=== PATIENT | male | born 1970 | race Caucasian/White ===

== ENCOUNTER 2021-07-18 00:20 | Day surgery (SDC) | payer OTHER, SELFPAY ==
[2021-06-29 11:18] VITALS: BMI 35.9
[2021-07-18 06:05] VITALS: BP 141/88; PULSE 59; RESP 18; TEMP 36.4; O2SAT 97
[2021-07-18] MEDS: LACTATED RINGERS 1,000 ML 150 ML IV CONT (06:27)
--- NOTE | 2021-07-18 07:25 | PM.HPGS ---
History of Present Illness History of Present Illness Consent: Risks, benefits, and alternatives have been discussed and questions answered. Patient agrees to proceed with procedure. Chief complaint: neoplasm screening Narrative: Corky Weston is a 50 year old male here for first screening colonoscopy Review of Systems Constitutional: Constitutional: Denies headache(s) and Denies weakness Eyes: Eyes: Denies blurry vision ENT: Reports Normal hearing present, Denies headache(s) and Denies neck pain Cardiovascular: Cardiovascular: Denies chest pain and Denies dyspnea Respiratory: Respiratory: Denies dyspnea Gastrointestinal: Gastrointestinal: Reports no additional gastrointestinal complaints Genitourinary: Genitourinary: Denies dysuria Musculoskeletal: Musculoskeletal: Denies neck pain Integumentary/Breasts: Skin/Breast: Denies dry skin Neurologic: Reports Normal hearing present, Denies headache(s) and Denies weakness Psychiatric: Psychiatric: Denies anxiety Endocrine: Endocrine: Denies change in body appearance Hematologic/Lymphatic: Hematologic/Lymphatic: Denies easy bleeding Allergic/Immunologic: Allergic/Immunologic: Denies urticaria PMF Past Medical History Medical History (Updated 07/18/21 @ 07:25 by Jimmy Anderson MD) Colon cancer screening Dyslipidemia Essential (primary) hypertension Pure hyperglyceridemia Family History Family History Father Family history of elevated blood lipids Social History Social History Smoking status: Never smoker Second hand tobacco smoke exposure: No Alcohol intake: current Drinks per week: 2 Substance use: never Substance use type: does not use Living arrangements: with family Gender identity (if verbalized by the patient): Male Spiritual care concerns: No Meds Home Medications and Allergies Home Medications Medication Instructions Recorded Confirmed Type multivitamin 1 tablet PO DAILY 06/06/20 07/18/21 History amlodipine 10 mg PO DAILY 06/29/21 07/18/21 History lisinopril 40 mg PO DAILY 06/29/21 07/18/21 History Allergies Allergy/AdvReac Type Severity Reaction Status Date / Time No Known Allergies Allergy Verified 06/29/21 11:17 Vital Signs Vital Signs - 24 hr 07/18/21 06:05 Temperature 97.6 F Pulse Rate 59 L Respiratory Rate 18 Blood Pressure 141/88 H Pulse Oximetry 97 Exam Const: General: comfortable and no acute distress HENMT: General nose exam: Normal nares present Eyes: General: appearance normal, both eyes and all related structures Neck: Neck: no JVD Resp: Auscultation: clear to auscultation bilaterally Cardio: Rate: regular rate Rhythm: regular rhythm GI: Inspection: non-distended GI Palp: Yes Soft to palpation Skin: General skin exam: normal color Neuro: General: gait normal Speech: normal speech Extrem: General: normal to inspection Psych: Mental Status: mental status grossly normal Assessment and Plan Assessment and plan (1) Colon cancer screening: Code(s): Z12.11 - Encounter for screening for malignant neoplasm of colon Status: Acute Assessment and Plan: colonoscopy
--- NOTE | 2021-07-18 07:44 | WPDANESEPPF ---
Anes - Initial Pre Proc Eval Procedure: Operation Date: 07/18/21 07:30 Proposed Procedures p Screening Colonoscopy - Jimmy Anderson MD Date/Time: 07/18/21 07:44 Surgeon: Jimmy Anderson MD Pre Op Diagnosis: neoplasm screening Patient Data Age: 50 Gender: M Height: 1.88 m Weight: 132.8 kg Last Vital Signs Temp 97.6 F 07/18/21 06:05 Pulse 59 L 07/18/21 06:05 Resp 18 07/18/21 06:05 BP 141/88 H 07/18/21 06:05 Pulse Ox 97 07/18/21 06:05 Allergies Allergy/AdvReac Type Severity Reaction Status Date / Time No Known Allergies Allergy Verified 06/29/21 11:17 Home Medications Medication Instructions Recorded Confirmed Type multivitamin 1 tablet PO DAILY 06/06/20 07/18/21 History amlodipine 10 mg PO DAILY 06/29/21 07/18/21 History lisinopril 40 mg PO DAILY 06/29/21 07/18/21 History Patient hx anesthesia problems: none Family hx anesthesia problems: none Results Review: All pre-operative results and documents have been reviewed as part of the pre-operative evaluation. [facility] Past Medical History Medical History (Updated 07/18/21 @ 07:25 by Jimmy Anderson MD) Colon cancer screening Dyslipidemia Essential (primary) hypertension Pure hyperglyceridemia Family History Family History Father Family history of elevated blood lipids Social History Social History Smoking status: Never smoker Second hand tobacco smoke exposure: No Alcohol intake: current Drinks per week: 2 Substance use: never Substance use type: does not use Living arrangements: with family Gender identity (if verbalized by the patient): Male Spiritual care concerns: No Anes - Eval Final PreProcedure Day of Procedure 07/18/21 07:44 Patient weight: obese Heart: regular rate and rhythm Lungs: clear to auscultation Airway: Mallampati scale class III Neurological: alert and oriented Last oral intake: >/= 8 hours ASA classification: III Emergent: no Anesthetic plan: proceed Anesthesia type and monitoring: general GIVS and standard monitoring Results Review: All pre-operative results and documents have been reviewed as part of the pre-operative evaluation. Informed Consent: The patient's anesthetic plan and its attendant risks and benefits were discussed with the patient/family/POA. Questions were solicited and answers provided to the satisfaction of the patient/family/POA.
[2021-07-18 07:52] VITALS: BP 125/82; PULSE 63; RESP 14; O2SAT 99
[2021-07-18 08:02] VITALS: BP 137/84; PULSE 59; RESP 17; O2SAT 100
--- NOTE | 2021-07-18 08:05 | SUR.OPER ---
Informed Dr. Knox that second ascending polyp was not retrieved, no further instructions given
[2021-07-18 08:12] VITALS: BP 121/85; PULSE 55; RESP 15; O2SAT 100
== END 2021-07-18 08:22 | disposition home or self-care (01) ==
PROVIDERS: PCP Family Medicine; Visit Provider Internal Medicine Gastroenterology
PROC: 0DJD8ZZ Inspection of Lower Intestinal Tract, Via Natural or Artificial Opening Endoscopic (ICD-10-PCS; CPT 45378; principal; 2021-07-18 07:30)
DX: Z12.11 Encounter for screening for malignant neoplasm of colon (principal); D12.2 Benign neoplasm of ascending colon; K63.5 Polyp of colon; I10 Essential (primary) hypertension; E78.5 Hyperlipidemia, unspecified
CPT/HCPCS: 45385; 88305; J2704; J7120

== ENCOUNTER 2022-09-29 17:26 | Emergency (ER) | payer OTHER, SELFPAY ==
[2022-09-29 17:32] VITALS: BP 156/95; PULSE 63; RESP 16; TEMP 36.6; O2SAT 100
--- NOTE | 2022-09-29 17:35 | ED.EYEPROB ---
HPI - Eye Problem General Chief complaint: Eye Problems Stated complaint: lt eye irritation Time Seen by Provider: 09/29/22 18:00 Source: patient Mode of arrival: ambulatory Limitations: no limitations History of Present Illness HPI Narrative: 52 y/o male presented for c/o left eye irritation since yesterday. Endorses redness, mild swelling to the lid and foreign body sensation. Mild clear tearing. States symptoms started after using a wire brush on a metal painter. Was wearing safety glasses, and denies feeling something enter the eye, but feels there has been something in the upper eye when blinking. Has attempted eye flush several times without change. Denies pain, states it is annoying. Does not wear contact lenses. Denies purulent drainage, vision changes, photophobia, headache, n/v/d/f/c. chief complaint: eye pain Related Data Home Medications Medication Instructions Recorded Confirmed multivitamin 1 tablet PO DAILY 06/06/20 06/25/22 Allergies Allergy/AdvReac Type Severity Reaction Status Date / Time No Known Allergies Allergy Verified 06/25/22 07:56 Review of Systems Review of Systems: CONSTITUTIONAL: Denies body aches, fever, chills EYES:Denies swelling, redness or pain to eye; Endorses FB sensation ENT: Denies rhinorrhea, congestion, sore throat, or otalgia. CARDIOVASCULAR: Denies chest pain, palpitations RESPIRATORY: Denies cough or dyspnea. GASTROINTESTINAL: Denies abdominal pain, nausea, vomiting, or diarrhea. SKIN: Denies rash, itching, or wounds. MUSCULOSKELETAL: Denies back pain, joint pain, or myalgia. NEUROLOGIC: Denies headache, numbness, tingling, or weakness. All systems reviewed & are unremarkable except as noted in HPI and below [facility] Past Medical History Medical History Bilateral hip pain Colon cancer screening Dyslipidemia Essential (primary) hypertension Pure hyperglyceridemia Family History Family History Father Family history of elevated blood lipids Social History Social History Smoking status: Never smoker Second hand tobacco smoke exposure: No Alcohol intake: current Drinks per week: 2 Substance use: never Substance use type: does not use Living arrangements: with family Occupation/Education: occupation Gender identity (if verbalized by the patient): Male Spiritual care concerns: No Comments At time of signature, I have reviewed and agree with nursing past medical, surgical, social and family history unless otherwise noted. Please see nursing chart for further information. There is no relevant family history pertinent to the presenting complaint Exam Narrative: GENERAL: Well-appearing HEAD: Normocephalic, atraumatic. EYES: left conjunctival injection, no eye lid swelling/redness or stye; no purulence. PERRLA EOMI. Lid eversion shows no FB. No corneal abrasion. ENT: Mucous membranes pink and moist. No rhinorrhea. TMs normal bilaterally. Throat normal. Uvula midline. CHEST: Clear to auscultation. HEART: Regular rate and rhythm. ABDOMEN: Soft, nontender, nondistended SKIN: Warm, dry, no rash. Normal skin turgor. NEURO: No focal deficits. Alert and oriented x3 PSYCH: Normal affect. Course Course Emergency Course: Patient is aware of diagnosis, understands and agrees to treatment plan. Anticipatory guidance given. Patient agrees to follow-up as directed and is aware of reasons to seek care at the emergency department. Portions of this record may have been created with voice recognition software Level of Care: Express Care Visit Vital Signs Vital signs: Vital Signs Temperature 97.9 F 09/29/22 17:32 Pulse Rate 63 09/29/22 17:32 Respiratory Rate 16 09/29/22 17:32 Blood Pressure 156/95 H 09/29/22 17:32 Pulse Oximetry 100 09/29/22 17:32 T
== END 2022-09-29 18:29 | disposition home or self-care (01) ==
PROVIDERS: Emergency Provider Nurse Practitioner Family; PCP Family Medicine
DX: H57.12 Ocular pain, left eye (principal); E78.5 Hyperlipidemia, unspecified; I10 Essential (primary) hypertension
CPT/HCPCS: 99213; A9270; G0463

== ENCOUNTER 2024-10-15 00:23 | Day surgery (SDC) | payer OTHER, SELFPAY ==
--- OUTSIDE RECORDS SUMMARY | 2024-10-15 00:26 | XMS_ITS | Referral Summary ---
Author Organization [facility] [address] Address [address] [place] [address] Care Team Providers Care Glass Installer Technician Name Role Phone Zoltan Schwartz MD Primary Care Provider Allergies No known active allergies Medications amLODIPine (NORVASC) 10 mg tablet Take 10 mg by mouth daily 04/15/2019 Active lisinopril (PRINIVIL,ZESTRIL ) 40 mg tablet Take 40 mg by mouth daily 05/12/2019 Active multivitamin tabletIndications :Vitamin Deficiency Prevention Take 1 tablet by mouth daily Active chlorthalidone 25 mg tabletIndications :Essential hypertension Take 1 tablet (25 mg total) by mouth daily 30 tablet 11 07/26/2019 Active Active Problems Problem Noted Date Diagnosed Date Essential hypertension 05/20/2019 Morbid obesity with BMI of 40.0-44.9, adult 01/2019 Hyperlipidemia LDL goal <130 05/20/2019 Hypokalemia 05/20/2019 Social History Tobacco Use Types Packs/Day Years Used Date Smoking Tobacco: Never Smokeless Tobacco: Former Chew Tobacco Cessation:Counseling Given: Yes Alcohol Use Standard Drinks/Week Comments Yes 1 (1 standard drink = 0.6 oz pur e alcohol) Sex and Gender Information Value Date Recorded Sex Assigned at Not on file 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 Gender Identity Not on file Sexual Orientation Not on file Last Filed Vital Signs Vital Sign Reading Time Taken Comments Blood Pressure 122/78 11/04/2019 2:05 PM CDT Pulse 76 11/04/2019 2:05 PM CDT Temperature - - Respiratory Rate - - Oxygen Saturation 96% 07/26/2019 3:32 PM LAUNDRY HOUSEKEEPING AIDE Inhaled Oxygen Concentration - - Weight 147.9 kg (326 lb) 11/04/2019 2:05 PM CDT Height 188 cm (6' 2 ) 11/04/2019 2:05 PM CDT Body Mass Index 41.86 11/04/2019 2:05 PM CDT Plan of Treatment Not on file Insurance [employer] OPEN ACCESS [facility] Care Teams Glass Installer Technician Relationship Specialty Start Date End Date Zoltan Schwartz MD [id number] [address] PCP - General Family Medicine 05/17/19
--- OUTSIDE RECORDS SUMMARY | 2024-10-15 00:26 | XMS_ITS | Clinical Summary ---
Author Organization [facility] [address] Address [address] [place] [address] Care Team Providers Care Barrel Rifler Broach Name Role Phone Zoltan Schwartz MD Primary [...] Hyperlipidemia LDL goal <130 05/20/2019 Hypokalemia 05/20/2019 Surgical History Surgery Date Site/Laterality Comments APPENDECTOMY Medical History Medical History Date Comments Hypertension Family History Medical History Relation Name Comments No Known Problems Brother 1 No Known Problems Brother 2 Arrhythmia Father Atrial fibrillation Father Bladder Cancer Father Hypertension Father Other Mother No Known Problems Sister Relation Name Status Comments Brother 1 Alive Brother 2 Alive Father Alive Mother (Age 59) Sister Alive Social History Tobacco Use Types Packs/Day Years Used Date Smoking Tobacco: Never Smokeless Tobacco: Former Chew Tobacco Cessation:Counseling Given: Yes Alcohol Use Standard Drinks/Week Comments Yes 1 (1 standard drink = 0.6 oz pur e alcohol) Sex and Gender Information Value Date Recorded Sex Assigned at Not on file 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 Gender Identity Not on file Sexual Orientation Not on file Obstetrics History Last Filed Vital Signs Vital Sign Reading Time Taken Comments Blood Pressure 122/78 11/04/2019 2:05 PM CDT Pulse 76 11/04/2019 2:05 PM CDT Temperature - - Respiratory Rate - - Oxygen Saturation 96% 07/26/2019 3:[address] SUPERVISOR Inhaled Oxygen Concentration - - Weight 147.9 kg (326 lb) 11/04/2019 2:05 PM CDT Height 188 cm (6' 2 ) 11/04/2019 2:05 PM CDT Body Mass Index 41.86 11/04/2019 2:05 PM CDT Plan of Treatment Health Maintenance Due Date Last Done Comments Colon Cancer Screening-Colonoscopy 1972 Depression Screening 1972 Hepatitis C Screening 1972 Prostate Cancer Screening-PSA 1972 DTaP/Tdap/Td Vaccine (1 - Tdap) 1983 Hepatitis B Screening 1990 Regular Well Visit/Exam 18-64 1990 Zoster Vaccine (1 of 2) 2022 Influenza Vaccine (#1) 2024 , 05/10/2018, 04/10/2017, Additional history exists Pneumococcal vaccine <65 Aged Out No longer eligible based on patient's age to complete this topic Insurance [place] [address] LOCAL PLUS Care Teams Barrel Rifler Broach Relationship Specialty Start Date End Date Zoltan Schwartz MD [address] [facility] [address] [place] [address] PCP - General Family Medicine 05/17/19
[2024-10-15 08:50] VITALS: BP 134/82; PULSE 67; RESP 18; TEMP 36.2; O2SAT 99; BMI 36.3
[2024-10-15] MEDS: LACTATED RINGERS 1,000 ML 150 ML IV CONT (08:54)
--- NOTE | 2024-10-15 09:24 | P.PNAN_ITS ---
Anes - Initial Pre Proc Eval Procedure: Operation Date: 10/15/24 10:00 Proposed Procedures p Colonoscopy - Jimmy Anderson MD Date/Time: 10/15/24 09:24 Surgeon: Jimmy Anderson MD Pre Op Diagnosis: hx of colon polyps Patient Data Age: 54 Gender: M Height: 1.88 m Weight: 128.2 kg Last Vital Signs Temp 97.2 F L 10/15/24 08:50 Pulse 67 10/15/24 08:50 Resp 18 10/15/24 08:50 BP 134/82 10/15/24 08:50 Pulse Ox 99 10/15/24 08:50 O2 Del Method Room Air 10/15/24 08:50 Allergies Allergy/AdvReac Type Severity Reaction Status Date / Time No Known Allergies Allergy Verified 10/15/24 08:48 Home Medications ?Medication ?Instructions ?Recorded ?Confirmed ?Type multivitamin 1 tablet PO DAILY 06/06/20 10/15/24 History amlodipine 10 mg tablet 10 mg PO DAILY #90 tabs 07/27/24 10/15/24 Rx lisinopril 40 mg tablet 40 mg PO DAILY #90 tabs 07/27/24 10/15/24 Rx tirzepatide (weight loss) 5 mg/0.5 5 mg (0.5 mL) subcut WEEKLY #2 mL 10/04/24 10/04/24 Rx mL subcutaneous pen injector (Zepbound) Patient hx anesthesia problems: none Family hx anesthesia problems: none Results Review: All pre-operative results and documents have been reviewed as part of the pre- operative evaluation. [facility] Past Medical History Medical History Bilateral hip pain Colon cancer screening Dyslipidemia Essential (primary) hypertension Pure hyperglyceridemia Family History Family History Father Family history of elevated blood lipids Social History Social History Social History: Smoking status: Never smoker Second hand tobacco smoke exposure: No Alcohol intake: current Alcohol use details: Occasionally Substance use: never Substance use type: does not use Do You Feel Safe in your Home?: Yes Lack of Transportation: No Lack of Food: Never True Current Housing: I Have Housing Concerned About Future Housing: No Difficulty Paying Gas/Electric Bills: No Difficulty Paying for Meds: No Currently Unemployed: No Education: Bachelor's Degree Difficulty w/ Childcare or Family Care: No Living arrangements: with family Occupation/Education: occupation 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 Gender identity (if verbalized by the patient): Male Sexual Orientation (if Verbalized by the Patient): Straight or Heterosexual Spiritual care concerns: No Anes - Eval Final PreProcedure Day of Procedure 10/15/24 09:24 Patient weight: obese Lungs: normal air movement Airway: Mallampati scale class II Neurological: alert and oriented Last oral intake: >/= 8 hours ASA classification: II Emergent: no Anesthetic plan: proceed Anesthesia type and monitoring: general GIVS and standard monitoring Results Review: All pre-operative results and documents have been reviewed as part of the pre- operative evaluation. HTN, borderline hyperlipidemia, BMI 36. Informed Consent: The patient's anesthetic plan and its attendant risks and benefits were discussed with the patient/family/POA. Questions were solicited and answers provided to the satisfaction of the patient/family/POA.
--- NOTE | 2024-10-15 09:25 | PM.HPGS ---
History of Present Illness History of Present Illness Consent: Risks, benefits, and alternatives have been discussed and questions answered. Patient agrees to proceed with procedure. Chief complaint: hx of colon polyps Narrative: Corky Weston is a 54 year old male with colon polyp in 2021 Review of Systems Review of Systems: All systems reviewed & are unremarkable except as noted in HPI and below [facility] Past Medical History Medical History (Updated 10/15/24 @ 09:25 by Jimmy Anderson MD) Adenomatous colon polyp Bilateral hip pain Colon cancer screening Dyslipidemia Essential (primary) hypertension Pure hyperglyceridemia Family History Family History Father Family history of elevated blood lipids Social History Social History Social History: Smoking status: Never smoker Second hand tobacco smoke exposure: No Alcohol intake: current Alcohol use details: Occasionally Substance use: never Substance use type: does not use Do You Feel Safe in your Home?: Yes Lack of Transportation: No Lack of Food: Never True Current Housing: I Have Housing Concerned About Future Housing: No Difficulty Paying Gas/Electric Bills: No Difficulty Paying for Meds: No Currently Unemployed: No Education: Bachelor's Degree Difficulty w/ Childcare or Family Care: No Living arrangements: with family Occupation/Education: occupation 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 Gender identity (if verbalized by the patient): Male Sexual Orientation (if Verbalized by the Patient): Straight or Heterosexual Spiritual care concerns: No Meds Home Medications and Allergies Home Medications ?Medication ?Instructions ?Recorded ?Confirmed ?Type multivitamin 1 tablet PO DAILY 06/06/20 10/15/24 History amlodipine 10 mg tablet 10 mg PO DAILY #90 tabs 07/27/24 10/15/24 Rx lisinopril 40 mg tablet 40 mg PO DAILY #90 tabs 07/27/24 10/15/24 Rx tirzepatide (weight loss) 5 mg/0.5 5 mg (0.5 mL) subcut WEEKLY #2 mL 10/04/24 10/04/24 Rx mL subcutaneous pen injector (Zepbound) Allergies Allergy/AdvReac Type Severity Reaction Status Date / Time No Known Allergies Allergy Verified 10/15/24 08:48 Vital Signs Vital Signs - 24 hr 10/15/24 08:50 Temperature 97.2 F L Pulse Rate 67 Respiratory Rate 18 Blood Pressure 134/82 Pulse Oximetry 99 Oxygen Delivery Room Air Exam Const: General: comfortable and no acute distress HENMT: Face/Nose/Sinus: Normal nares present Eyes: General: appearance normal, both eyes and all related structures Neck: Neck: no JVD Resp: Auscultation: clear to auscultation bilaterally Cardio: Rate: regular rate Rhythm: regular rhythm GI: Inspection: non-distended GI Palp: Yes Soft to palpation Skin: General skin exam: normal color Neuro: General: gait normal Speech: normal speech Extrem: General: normal to inspection Psych: Mental Status: mental status grossly normal Assessment and Plan Assessment and plan (1) Adenomatous colon polyp: Code(s): D12.6 - Benign neoplasm of colon, unspecified Status: Acute Assessment and Plan: colonoscopy
[2024-10-15 09:44] VITALS: BP 124/81; PULSE 67; RESP 17; O2SAT 97
[2024-10-15 09:54] VITALS: BP 123/80; PULSE 70; RESP 20; O2SAT 99
[2024-10-15 10:04] VITALS: BP 138/91; PULSE 63; RESP 17; O2SAT 98
== END 2024-10-15 10:14 | disposition home or self-care (01) ==
PROVIDERS: PCP Family Medicine; Referring Provider Internal Medicine Gastroenterology; Visit Provider Internal Medicine Gastroenterology
PROC: 0DJD8ZZ Inspection of Lower Intestinal Tract, Via Natural or Artificial Opening Endoscopic (ICD-10-PCS; CPT 45378; principal; 2024-10-15 10:00)
DX: Z12.11 Encounter for screening for malignant neoplasm of colon (principal); K64.8 Other hemorrhoids; E78.5 Hyperlipidemia, unspecified; I10 Essential (primary) hypertension; E78.1 Pure hyperglyceridemia; E66.9 Obesity, unspecified; Z68.36 Body mass index [BMI] 36.0-36.9, adult; Z79.85 Long-term (current) use of injectable non-insulin antidiabetic drugs; Z86.0100 Personal history of colon polyps, unspecified
CPT/HCPCS: 45378; J2003; J2704; J7120